=== PATIENT | female | born 1950 | race Caucasian/White ===

== ENCOUNTER 2020-08-22 06:08 | Day surgery (SDC) | payer MEDICARE, BC ==
[2020-08-22] MEDS ORDERED: BUPIVACAINE 0.5% VIAL IJ ONE (06:47)
[2020-08-22] MEDS ORDERED: XYLOCAINE 1% HCL 20 ML MDV ONE (06:47)
[2020-08-22] MEDS ORDERED: KEFZOL 1 GM ONE (06:54)
[2020-08-22] MEDS ORDERED: KEFZOL 1 GM/50 ML PREMIX** 1 GM/50 ML IVPB IV SCH (07:00)
[2020-08-22] MEDS ORDERED: Lactated Ringers 1,000 ML IV SCH (07:00)
[2020-08-22] MEDS ORDERED: SUBLIMAZE 100 MCG/2 ML ONE (10:08)
[2020-08-22] MEDS ORDERED: DIPRIVAN 200 MG/20 ML IV ONE ×2 (10:08→10:58)
[2020-08-22] MEDS ORDERED: Versed 2 MG/2 ML Injection ONE (10:09)
[2020-08-22] MEDS ORDERED: Lactated Ringers 1,000 ML IV ONE (10:40)
[2020-08-22] MEDS ORDERED: Ephedrine Sulfate 50 MG/ML ONE (11:16)
--- NOTE | 2020-08-22 12:39 | XRAY ---
Indication: Right hammertoe correction. Intraoperative fluoroscopy provided for 33 seconds. Single digital spot image of the forefoot demonstrates orthopedic K wire traversing 2nd MTP and entire 2nd phalanx. Correlate with interoperative findings/report. Incidental 1st and 2nd metatarsal head orthopedic hardware.
[2020-08-22] MEDS ORDERED: TORAdol 30 mg Injection ONE (12:48)
[2020-08-22 13:16] VITALS: O2SAT 92
[2020-08-22 13:35] VITALS: BP 152/92; PULSE 85
--- NOTE | 2020-08-22 21:53 | XRAY ---
33 seconds fluoroscopy time in surgery for right 2nd MP joint and 2 toe hammertoe repair.
--- NOTE | 2020-08-25 11:29 | OP ---
SURGERY DATE/TIME: 08/22/2020 1022 PREOPERATIVE DIAGNOSIS: Plantar plate rupture second metatarsophalangeal joint of the right thick elongated second metatarsal and second hammer toe of the right foot. POSTOPERATIVE DIAGNOSIS: Plantar plate rupture second metatarsophalangeal joint of the right thick elongated second metatarsal and second hammer toe of the right foot. PROCEDURE: Right plantar plate repair second metatarsophalangeal joint, second metatarsal Andrea and second digit hammer toe correction all right. SURGEON: David Back DPM. STAFF REPORTER: None. ANESTHESIA: MAC plus local. 10 cc 1:1 mixture of 1% lidocaine plain and 0.5% bupivacaine plain injected in a digital block-type fashion. HEMOSTASIS: Ankle tourniquet to the right ankle set at 250 mm of Mercury for approximately 67 minutes. ESTIMATED BLOOD LOSS: Less than 10 cc. MATERIALS: [place] plantar plate repair system from [employer] and one - 13 mm 1.8 snap off screw, 4-0 Monocryl and 3-0 Nylon. INJECTABLES: 10 cc of 1:1 mixture of lidocaine plain and 0.5% bupivacaine plain. INDICATION FOR SURGERY: Alexa is a very pleasant 70 year-old female who presented to my office initially for some complaints of metatarsalgia as well as pain with dorsiflexion of her left foot. The patient indicates that she suffered an injury approximately a year ago where she was coming down a step-ladder and dorsiflexed her second digit of the left foot resulting in a plantar plate tear. The patient has had pain with every step as a result and has failed therapy with metatarsal pad as well as injections. The patient at this time wishes to proceed with surgical intervention. The patient understands all risks, benefits and complications of surgical intervention at this time including but not limited to failure of surgical intervention, possible delayed wound healing, delayed bone healing, nonbone healing and possible need for repeat surgical intervention in the future. She understands all of this and wishes to proceed at this time. DESCRIPTION OF PROCEDURE AND FINDINGS: After assessment by the preoperative anesthesia care team, the patient was brought into the OR and placed on the OR table. At this time a well-padded ankle tourniquet was applied and the tourniquet was set to 250 mm of Mercury. At this time the anesthesia team administered monitored anesthesia care and a digital block was performed consisting of a 1:1 mixture of 0.5% bupivacaine plain and 1% lidocaine plain in a metatarsal block-type fashion. Following this the left foot was prepped and draped in typical sterile fashion and lowered onto the surgical field. At this time attention was directed to the dorsal aspect of the second metatarsophalangeal joint where an incision was made utilizing a 15 blade down to the level of the digital extensor tendon this was performed utilizing a combination of blunt and sharp dissection being careful not to damage any neurovascular structures along the way. At this time the extensor tendon was visualized and freed up from its tendon sheath. At this time a lengthening of the extensor tendon was performed in or to gain exposure of the metatarsophalangeal joint. At this time a capsulotomy was performed of the metatarsophalangeal joint and Andrea osteotomy was performed utilizing a 13 mm sagittal saw. At this time the metatarsal head was pushed back and held in place utilizing a K-wire while visualization of the plantar plate was made and distraction was applied. The plantar plate tear was identified and completed. At this time dissection of the plantar plate was completed and the scorpion suture passer was utilized to pass the suture through the plantar plate and secure it to the end of the ligament this process was repeated medial and laterally. At this time the jig was utilized to drill the suture passer poles and this was secured over the dorsal aspect of the proximal phalanx. At this time the Andrea osteotomy was deemed to be adequate and the overhanging edge was resected utilizing a rongeur. The closure was relatively tight in securing the plantar plate so to allow adequate motion. At this time the Andrea osteotomy was secured utilizing a 13 mm 1.8 screw this was checked on the lateral and under fluoroscopy to deem it was not protruding the cartilaginous portion of the metatarsal head. Following this attention then was directed to the proximal interphalangeal joint where dissection was performed at the proximal interphalangeal joint. Sagittal saw was then utilized to resect the joint surfaces shortening the bone and also taking the protrusion out of the medial aspect of the proximal metatarsophalangeal joint which was causing her significant callous in this area. K-wire was advanced through the distal tip of the middle phalanx and distal phalanx of the second digit and retrograded down the longitudinal cortex this was secured into the metatarsophalangeal joint securing the Andrea osteotomy as well this was done in planter flexion in effort for the plantar plate screw remodel over the course of the postoperative period. Following this skin edges were coapted utilizing 4-0 Monocryl and then in a simple interrupted-type fashion utilizing 3-0 Nylon. The K-wire was then bent at the distal tip of the digit and 0.062 K-wire was then tapped a [place] ball. At this time the surgical site was cleansed, tourniquet was let down at this time approximately 67 minutes. Betadine was applied to the surgical wound and was dressed with Adaptic, 4x4's, Kerlix and ANDRY. The patient was dispensed a forefoot offloading shoe for ambulation. The patient was reversed from anesthesia and brought into the postoperative anesthesia care unit with vital signs stable and vascular status intact. The patient handled the procedure and the anesthesia without complication. The patient's orders as indicated in the patient's chart.
== END 2020-08-22 13:48 | disposition home or self-care (01) ==
LOC: SDC 06:08
PROVIDERS: ATTEND Podiatrist Foot & Ankle Surgery
DX: M20.41 Other hammer toe(s) (acquired), right foot (principal); S96.111A Strain of muscle and tendon of long extensor muscle of toe at ankle and foot level, right foot, initial encounter; S93.691A Other sprain of right foot, initial encounter; M79.671 Pain in right foot
CPT/HCPCS: 28200; 28270; 28285; 28308; 73620; 76000; C1769; 99100; J0690; J1885; J2250; J2704; J3010